=== PATIENT | male | born 1965 | race Caucasian/White ===

== ENCOUNTER 2023-10-15 09:20 | Outpatient (CLI) | payer MEDICARE, MEDICAID, SELFPAY ==
--- NOTE | 2023-10-15 09:28 | ECG_ITS ---
SEE SCANNED COPY FOR CONFIRMED REPORT MTDD
== END 2023-10-15 09:21 | disposition home or self-care (01) ==
LOC: ANHSURGERY 09:25
PROVIDERS: PCP Emergency Medicine; Visit Provider Surgery
DX: Z01.818 Encounter for other preprocedural examination (principal); K40.90 Unilateral inguinal hernia, without obstruction or gangrene, not specified as recurrent; I10 Essential (primary) hypertension
CPT/HCPCS: 36415; 86850; 86900; 86901; 93005

== ENCOUNTER 2023-10-18 03:45 | Day surgery (SDC) | payer MEDICARE, MEDICAID, SELFPAY ==
[2023-10-08 09:48] VITALS: BMI 22.2
--- NOTE | 2023-10-08 09:56 | PC.NURSE ---
Report to the Outpatient Waiting Room, entrance under the green pavilion located off [facility], at time 6:00 on date 10/18/23. Planned Procedure Time: 7:30. Time changes happen often and if your time is changed the preop area will call you the afternoon before. - You and your visitor will be asked to self-screen and do not enter if you have any COVID symptoms. - A mask is optional within the hospital at this time. Patients may have clear liquids (water, carbonated beverages, clear teas, apple juice) until 3 hours prior to surgery (4:30) with a maximum of 20 ounces. - No food from midnight until time of surgery Take the following medications with a SIP of water the morning of surgery: PAIN PILL IF NEEDED DO NOT STOP ANY OF YOUR OTHER PRESCRIPTION MEDICATIONS PRIOR TO SURGERY ?EXCEPT THE FOLLOWING Medications to discontinue per physician: N/A Date to take last dose: N/A Please no make-up, nail greenlandic, hairspray, perfume, deodorant, or body powder the day of surgery. No jewelry (including any body piercings) or valuables the day of surgery, leave them at home. Please take a shower or bath the night before, or the morning of, surgery with an antibacterial soap. Wear comfortable, loose fitting clothing. - Jewelry must be removed prior to entering the operating room. Rings and piercings that are not removed may be cut off. - The hospital will not accept responsibility for valuables. - Please leave all valuables, including medications, at home the day of surgery. If you are going home after surgery, a licensed stock car driver must drive you home. - NO public transportation without another adult if you receive anesthesia. - We recommend that an adult stay with you for 24 hours following discharge. - We also recommend that you do not drive, make important decision, drink alcoholic beverages, or take any drugs that were not prescribed by your health care provider for at least 24 hours after your discharge time. Follow any additional instructions given to you from your surgeon. If you or anyone in your household have experienced Covid symptoms in the past week, please notify your surgeon or the nurse liaison at the phone number below for possible testing. Telephone instructions given to PT & SPOUSE and asked if any additional questions and then verbalized understanding. Patient advised to call surgeon office or pre surgery nurse liaison [phone] if any additional questions.
[2023-10-18] VITALS (8 sets, daily range): BP systolic 123–164; BP diastolic 74–94; PULSE 53–65; RESP 10–14; TEMP 36–36.2; O2SAT 94–100
--- NOTE | 2023-10-18 07:25 | P.HP_ITS ---
H&P: HPI History of Present Illness Date/Time: 10/18/23 07:25 Chief Complaint: left inguinal hernia Narrative: Len is a 58 y/o male who presents to the office accompanied by his at the request of Dr. Guzmán for evaluation of a left inguinal hernia. Patient states he first noticed a bulge in the left groin about six months ago. Patient states he feels a tugging sensation. States the bulge is reducible. He also reports discomfort with activity. Denies any issues with bowel movements or with urinating. Patient was seen at [facility] ED in [place]. Review of Systems Review of Systems: All systems reviewed & are unremarkable except as noted in HPI and below PMFSH Past Medical History Medical History Anxiety COPD (chronic obstructive pulmonary disease) GERD (gastroesophageal reflux disease) Hyperlipidemia Hypertension Stomach ulcer Family History Family History Father Diabetes mellitus Mother Hypertension Diabetes mellitus Social History Social History Social History: with 6 children Smoking packs per day: 1 Smoking cigarettes per day: 20.0 Years smoked: 40 Smoking pack-years: 40.00 Smoking status: Former smoker Tobacco type: cigarettes Smoking end date: 06/21/23 Alcohol intake: never Substance use: current Substance use type: marijuana Living arrangements: with family Additional occupation/education comments: disabled Spiritual care concerns: No Meds Home Medications and Allergies Home Medications Medication Instructions Recorded Confirmed Type diphenhydramine HCl 12.5 mg/5 mL 12.5 mg PO QHS 09/08/23 10/08/23 History oral elixir hydrocodone 10 mg-acetaminophen 1 tablet PO QHS PRN Pain 09/08/23 10/08/23 History 325 mg tablet lisinopril 10 mg tablet 10 mg PO DAILY 09/08/23 10/08/23 History omeprazole 40 mg capsule,delayed 40 mg PO DAILY 09/08/23 10/08/23 History release Allergies Allergy/AdvReac Type Severity Reaction Status Date / Time Penicillins Allergy Unknown Itching Verified 10/08/23 09:46 Exam Const: General: cooperative, comfortable and no acute distress Resp: Auscultation: clear to auscultation bilaterally Cardio: Rate: regular rate Rhythm: regular rhythm GI: Inspection: normal to inspection, non-distended and visible herniation GI Palp: Yes abdominal tenderness and Yes Hernia present Other: reducible LIH Assessment and Plan Assessment and plan (1) Left inguinal hernia: Code(s): K40.90 - Unilateral inguinal hernia, without obstruction or gangrene, not specified as recurrent Status: Acute Assessment and Plan: will setup for robotic assisted repair c mesh
[2023-10-18] MEDS: LACTATED RINGERS 1,000 ML 30 ML IV CONT ×2 (08:15→10:00)
[2023-10-18] MEDS: ACETAMINOPHEN 500 MG TABLET 1000 MG PO (08:15)
[2023-10-18] MEDS: KETOROLAC 15 MG/ML VIAL (*BKC) IV PUSH (08:15)
--- NOTE | 2023-10-18 08:43 | WPDANESEPPF ---
Anes - Initial Pre Proc Eval Procedure: Operation Date: 10/18/23 09:00 Proposed Procedures p Robotic Assisted Laparoscopic Left Inguinal Hernia Repair with Mesh - Tara Chavez MD Date/Time: 10/18/23 08:43 Surgeon: Tara Chavez MD Pre Op Diagnosis: left inguinal hernia Patient Data Age: 58 Gender: M Height: 1.78 m Weight: 71.9 kg Last Vital Signs Temp 97.2 F L 10/18/23 08:15 Pulse 65 10/18/23 08:15 Resp 14 10/18/23 08:15 BP 141/83 H 10/18/23 08:15 Pulse Ox 100 10/18/23 08:15 O2 Del Method Room Air 10/18/23 08:15 Allergies Allergy/AdvReac Type Severity Reaction Status Date / Time Penicillins Allergy Unknown Itching Verified 10/18/23 08:35 Home Medications Medication Instructions Recorded Confirmed Type diphenhydramine HCl 12.5 mg/5 mL 12.5 mg PO QHS 09/08/23 10/08/23 History oral elixir hydrocodone 10 mg-acetaminophen 1 tablet PO QHS PRN Pain 09/08/23 10/08/23 History 325 mg tablet lisinopril 10 mg tablet 10 mg PO DAILY 09/08/23 10/08/23 History omeprazole 40 mg capsule,delayed 40 mg PO DAILY 09/08/23 10/08/23 History release Patient hx anesthesia problems: none Family hx anesthesia problems: none Results Review: All pre-operative results and documents have been reviewed as part of the pre-operative evaluation. [facility] Past Medical History Medical History Anxiety COPD (chronic obstructive pulmonary disease) GERD (gastroesophageal reflux disease) Hyperlipidemia Hypertension Stomach ulcer Family History Family History Father Diabetes mellitus Mother Hypertension Diabetes mellitus Social History Social History Social History: with 6 children Smoking packs per day: 1 Smoking cigarettes per day: 20.0 Years smoked: 40 Smoking pack-years: 40.00 Smoking status: Former smoker Tobacco type: cigarettes Smoking end date: 06/21/23 Alcohol intake: never Substance use: current Substance use type: marijuana Living arrangements: with family Additional occupation/education comments: disabled Spiritual care concerns: No Anes - Eval Final PreProcedure Day of Procedure 10/18/23 08:43 Patient weight: normal Heart: regular rate and rhythm Lungs: clear to auscultation Airway: Mallampati scale class II (poor dentition; states none are loose) Neurological: alert and oriented Last oral intake: >/= 8 hours ASA classification: III Emergent: no Anesthetic plan: proceed Anesthesia type and monitoring: general ETT and standard monitoring Results Review: All pre-operative results and documents have been reviewed as part of the pre-operative evaluation. Informed Consent: The patient's anesthetic plan and its attendant risks and benefits were discussed with the patient/family/POA. Questions were solicited and answers provided to the satisfaction of the patient/family/POA.
--- NOTE | 2023-10-18 08:48 | WPDHPUPDATE1 ---
History and Physical Update Update Date/Time: 10/18/23 08:48 History and Physical has been reviewed, including an updated exam of the patient. There are NO changes in the patient's condition. Risks, benefits, and alternatives have been discussed and questions answered. Patient agrees to proceed with procedure.
[2023-10-18] MEDS: ceFAZolin 2 GM/D5W 50 ML 2 GM/50 ML BAG IVPB (08:52)
[2023-10-18] MEDS: BUPIVACAINE/EPINEPHRINE 0.5% 30 ML VIAL INFILTRATE (09:19)
--- NOTE | 2023-10-18 09:54 | P.OP_ITS ---
Procedure Note - Detailed Date of Procedure 10/18/23 Pre-op Diagnosis left inguinal hernia Post-op Diagnosis Same Procedure Performed robotic assisted left inguinal hernia repair with mesh Surgeon Tara Chavez MD Anesthesia General Indications 58 y/o M c LIH and worsening groin pain over last few months Findings indirect left inguinal hernia Description of Procedure Patient was brought into the operating room and placed in the supine position. After adequate induction of general anesthesia, the patient was prepped and draped in normal sterile fashion. A time-out was then done to verify the patient's identity, as well as the procedure being performed. I began by making a 8 mm incision in the supraumbilical region, a Veress needle was then placed into the peritoneal cavity. CO2 gas was then insufflated and after adequate pneumoperitoneum was achieved, the Veress needle was removed. I then placed an 8 mm trocar through this incision. I then placed the endoscope through this trocar site and under direct visualization placed 2 further 8 mm ports in the right and left mid abdomen. Of note, there was some adhesions to the left mid abdomen that were taken down to allow placement of the left-sided port. The [employer] robot was then docked to the 3 trocar sites. I then scrubbed out and went to the robotic console. Upon examining the pelvis, it was noted that the patient had a moderate left inguinal hernia. There was a small area sigmoid colon going up into the hernia that was easily reduced. The right side was examined and no hernia defect was noted. I began by making a preperitoneal flap approximately 6 cm superior to the defect. This flap was carried medially past the umbilical ligaments and laterally to the transversalis. It then began dissection of my medial compartment taking this down to the pubic tubercle. I then began the lateral dissection taking this down to the transversalis fascia. Once these compartments were achieved, I began dissection around the cord stru ctures. A moderate sized indirect hernia was noted at this point. Using careful dissection, was able to reduce indirect hernia sac off the cord structures. Once this was adequately done, I went ahead and placed a large piece of 3D Max mesh into the abdominal cavity. The mesh was carefully positioned, centering the center of the mesh over the indirect defect. Once this was done, was very satisfied with our repair. Using 3-0 Vicryl sutures, I tacked the mesh medially to Bharathi's ligament. Two lateral sutures were placed from the mesh to the transversalis fascia. I then closed the peritoneal flap with a running 2.0 V Lock suture. The abdomen was then desufflated, and all ports were removed. All incisions were then closed with the 4.0 monocryl suture. Dermabond was placed on each wound. The patient tolerated the procedure well, was extubated in the operating room postoperatively, and will now be transferred to the recovery room in stable condition. Implants large 3DMax mesh Estimated Blood Loss 10 Drains No Packing No Pathology None sent Complications No immediate complications Condition Stable Disposition PACU [facility] Billing Surgery - Charge Forward: Surgery Billing
[2023-10-18] MEDS: oxyCODONE HCL (*CRX) 5 MG TAB IR PO (11:32)
== END 2023-10-18 12:00 | disposition home or self-care (01) ==
PROVIDERS: PCP Emergency Medicine; Visit Provider Surgery
PROC: 8E0Y4CZ Robotic Assisted Procedure of Lower Extremity, Percutaneous Endoscopic Approach (ICD-10-PCS; CPT 49650; principal; 2023-10-18 09:00)
DX: K40.90 Unilateral inguinal hernia, without obstruction or gangrene, not specified as recurrent (principal); I10 Essential (primary) hypertension; E78.5 Hyperlipidemia, unspecified; F41.9 Anxiety disorder, unspecified; J44.9 Chronic obstructive pulmonary disease, unspecified; K21.9 Gastro-esophageal reflux disease without esophagitis; F12.90 Cannabis use, unspecified, uncomplicated; Z87.891 Personal history of nicotine dependence; Z79.891 Long term (current) use of opiate analgesic
CPT/HCPCS: 49650; S2900; 36415; 86850; 86900; 86901; 93005; A9270; C1781; J0690; J1100; J1170; J1885; J2250; J2405; J2704; J3010; J7030; J7120

== ENCOUNTER 2025-02-15 01:42 | Day surgery (SDC) | payer MEDICARE, MEDICAID, SELFPAY ==
[2025-02-07 14:44] VITALS: BMI 21.8
[2025-02-15 12:12] VITALS: BP 170/87; PULSE 63; RESP 16; TEMP 36.7; O2SAT 100; BMI 20.5
--- NOTE | 2025-02-15 12:20 | WPDANESEPPF ---
Anes - Initial Pre Proc Eval Procedure: Operation Date: 02/15/25 13:30 Proposed Procedures p EGD & Diagnostic Colonoscopy - Juan M Yadav MD Date/Time: 02/15/25 12:20 Surgeon: Juan M Yadav MD Pre Op Diagnosis: Anemia, unspecified, Other fecal abnormalities Patient Data Age: 59 Gender: M Height: 1.8 m Weight: 66.7 kg Last Vital Signs Temp 36.7 C 02/15/25 12:12 Pulse 63 02/15/25 12:12 Resp 16 02/15/25 12:12 BP 170/87 H 02/15/25 12:12 Pulse Ox 100 02/15/25 12:12 O2 Del Method Room Air 02/15/25 12:12 Allergies Allergy/AdvReac Type Severity Reaction Status Date / Time Penicillins Allergy Unknown Itching Verified 02/15/25 12:10 Home Medications ?Medication ?Instructions ?Recorded ?Confirmed ?Type diphenhydramine HCl 12.5 mg/5 mL 12.5 mg PO QHS 09/08/23 02/07/25 History oral elixir lisinopril 10 mg tablet 10 mg PO DAILY 09/08/23 02/15/25 History omeprazole 40 mg capsule,delayed 40 mg PO DAILY 09/08/23 02/07/25 History release cyclobenzaprine 10 mg tablet 10 mg PO Q6H PRN muscle spasm #20 11/03/23 02/07/25 Rx tabs hydrocodone 10 mg-acetaminophen 1 tablet PO QID PRN pain 02/07/25 02/15/25 History 325 mg tablet losartan 100 mg tablet 100 mg PO DAILY 02/07/25 02/15/25 History omeprazole 20 mg capsule,delayed 20 mg PO DAILY 02/07/25 02/15/25 History release rosuvastatin 10 mg tablet 10 mg PO DAILY 02/07/25 02/15/25 History Patient hx anesthesia problems: none Family hx anesthesia problems: none Results Review: All pre-operative results and documents have been reviewed as part of the pre-operative evaluation. [facility] Past Medical History Medical History Anxiety COPD (chronic obstructive pulmonary disease) GERD (gastroesophageal reflux disease) Hyperlipidemia Hypertension Stomach ulcer Surgical History Surgical History History of inguinal hernia repair 10/18/2023 - robotic assisted left inguinal hernia repair with mesh Family History Family History Father Diabetes mellitus Mother Hypertension Diabetes mellitus Social History Social History Social History: with 6 children Smoking packs per day: 1 Smoking cigarettes per day: 20.0 Years smoked: 40 Smoking pack-years: 40.00 Smoking status: Former smoker Tobacco type: cigarettes Smoking end date: 06/21/23 Alcohol intake: never Substance use: current Substance use type: marijuana Other substance usage details: DAILY Living arrangements: with family Additional occupation/education comments: disabled Spiritual care concerns: No Anes - Eval Final PreProcedure Day of Procedure 02/15/25 12:20 Patient weight: normal Heart: regular rate and rhythm Lungs: clear to auscultation and normal air movement Airway: Mallampati scale class II Neurological: alert and oriented Last oral intake: >/= 8 hours ASA classification: III Emergent: no Anesthetic plan: proceed Anesthesia type and monitoring: general GIVS and standard monitoring Results Review: All pre-operative results and documents have been reviewed as part of the pre-operative evaluation. Informed Consent: The patient's anesthetic plan and its attendant risks and benefits were discussed with the patient/family/POA. Questions were solicited and answers provided to the satisfaction of the patient/family/POA.
[2025-02-15] MEDS: LACTATED RINGERS 1,000 ML 150 ML IV CONT (12:22)
--- NOTE | 2025-02-15 13:39 | PM.HPGS ---
History of Present Illness History of Present Illness Consent: Risks, benefits, and alternatives have been discussed and questions answered. Patient agrees to proceed with procedure. Chief complaint: Anemia, unspecified, Other fecal abnormalities Narrative: Len Murphy is a 59 year old male with gerd on omeprazole, also colon polyp Review of Systems Review of Systems: All systems reviewed & are unremarkable except as noted in HPI and below PMFSH Past Medical History Medical History (Updated 02/15/25 @ 13:40 by Juan M Yadav MD) Colon polyp COPD (chronic obstructive pulmonary disease) Hyperlipidemia Hypertension GERD (gastroesophageal reflux disease) Stomach ulcer Anxiety Surgical History Surgical History History of inguinal hernia repair 10/18/2023 - robotic assisted left inguinal hernia repair with mesh Family History Family History Father Diabetes mellitus Mother Hypertension Diabetes mellitus Social History Social History Social History: with 6 children Smoking packs per day: 1 Smoking cigarettes per day: 20.0 Years smoked: 40 Smoking pack-years: 40.00 Smoking status: Former smoker Tobacco type: cigarettes Smoking end date: 06/21/23 Alcohol intake: never Substance use: current Substance use type: marijuana Other substance usage details: DAILY Living arrangements: with family Additional occupation/education comments: disabled Spiritual care concerns: No Meds Home Medications and Allergies Home Medications ?Medication ?Instructions ?Recorded ?Confirmed ?Type diphenhydramine HCl 12.5 mg/5 mL 12.5 mg PO QHS 09/08/23 02/07/25 History oral elixir lisinopril 10 mg tablet 10 mg PO DAILY 09/08/23 02/15/25 History omeprazole 40 mg capsule,delayed 40 mg PO DAILY 09/08/23 02/07/25 History release cyclobenzaprine 10 mg tablet 10 mg PO Q6H PRN muscle spasm #20 11/03/23 02/07/25 Rx tabs hydrocodone 10 mg-acetaminophen 1 tablet PO QID PRN pain 02/07/25 02/15/25 History 325 mg tablet losartan 100 mg tablet 100 mg PO DAILY 02/07/25 02/15/25 History omeprazole 20 mg capsule,delayed 20 mg PO DAILY 02/07/25 02/15/25 History release rosuvastatin 10 mg tablet 10 mg PO DAILY 02/07/25 02/15/25 History Allergies Allergy/AdvReac Type Severity Reaction Status Date / Time Penicillins Allergy Unknown Itching Verified 02/15/25 12:10 Vital Signs Vital Signs - 24 hr 02/15/25 12:12 Temperature 98.0 F Pulse Rate 63 Respiratory Rate 16 Blood Pressure 170/87 H Pulse Oximetry 100 Oxygen Delivery Room Air Exam Const: General: comfortable and no acute distress HENMT: Face/Nose/Sinus: Normal nares present Eyes: General: appearance normal, both eyes and all related structures Neck: Neck: no JVD Resp: Auscultation: clear to auscultation bilaterally Cardio: Rate: regular rate Rhythm: regular rhythm GI: Inspection: non-distended GI Palp: Yes Soft to palpation Skin: General skin exam: normal color Neuro: Speech: normal speech Extrem: General: normal to inspection Psych: Mental Status: mental status grossly normal Assessment and Plan Assessment and plan (1) GERD (gastroesophageal reflux disease): Qualifiers: Esophagitis presence: without esophagitis Qualified Code(s): K21.9 - Gastro-esophageal reflux disease without esophagitis Code(s): K21.9 - Gastro-esophageal reflux disease without esophagitis Status: Acute Assessment and Plan: egd (2) Colon polyp: Code(s): K63.5 - Polyp of colon Status: Acute Assessment and Plan: colonoscopy
[2025-02-15] MEDS: BENZOCAINE (*SP) 60 ML SPRAY CAN (HURRICAINE) 1 SPRAY MUCOUS MEM (13:41)
--- NOTE | 2025-02-15 13:51 | S_PTH ---
PATIENT: Len Murphy LOC: [facility]#:[id number] AGE/SX: 59/M ROOM: RE02/15/[address]: Juan M Yadav MD : 1965 BED: DIS: 02/15/2025 SPEC #: [id number] RECD: 02/15/25 14:41 STATUS: TERRY RENayely #: [id number] CAM: 02/15/25 13:[address]: Juan M Yadav DEPT: [facility] Surgical RECD BY: Amada Lubin ENTERED: 02/15/25 14:42 SP TYPE: Surgical OTHR DR: Goran Guzmán MD Tissues: A - Gastric Biopsy B - Small Bowel Bx C - Colon Polypectomy Procedures: Hematoxylin and Eosin Stain Gross and Microscopic Level 4
[2025-02-15 14:01] VITALS: BP 116/80; PULSE 67; RESP 17; O2SAT 99
[2025-02-15 14:11] VITALS: BP 128/79; PULSE 67; RESP 22; O2SAT 100
[2025-02-15 14:21] VITALS: BP 141/87; PULSE 62; RESP 19; O2SAT 100
== END 2025-02-15 14:28 | disposition home or self-care (01) ==
PROVIDERS: PCP Emergency Medicine; Referring Provider Emergency Medicine; Visit Provider Internal Medicine Gastroenterology
PROC: 0DJ08ZZ Inspection of Upper Intestinal Tract, Via Natural or Artificial Opening Endoscopic (ICD-10-PCS; CPT 45378; principal; 2025-02-15 13:30)
DX: K21.9 Gastro-esophageal reflux disease without esophagitis (principal); D12.3 Benign neoplasm of transverse colon; K64.8 Other hemorrhoids; K44.9 Diaphragmatic hernia without obstruction or gangrene; K31.89 Other diseases of stomach and duodenum; E78.5 Hyperlipidemia, unspecified; I10 Essential (primary) hypertension; J44.9 Chronic obstructive pulmonary disease, unspecified; F41.9 Anxiety disorder, unspecified; F12.90 Cannabis use, unspecified, uncomplicated; Z79.891 Long term (current) use of opiate analgesic; Z98.890 Other specified postprocedural states; Z87.11 Personal history of peptic ulcer disease; Z87.891 Personal history of nicotine dependence
CPT/HCPCS: 43239; 45385; 88305; J2003; J2704; J7120